=== PATIENT | female | born 1985 ===

== ENCOUNTER → 2024-10-07 07:08 | Outpatient (REF) | payer BC, SELFPAY | LOC: MRI 07:08 | PROVIDERS: ATTENDING PHYSICIAN Physician Assistant Medical; FAMILY PHYSICIAN Physician Assistant Medical | DX: M76.891 Other specified enthesopathies of right lower limb, excluding foot (principal); M76.892 Other specified enthesopathies of left lower limb, excluding foot | CPT/HCPCS: 72195 ==

== ENCOUNTER → 2025-02-16 19:22 | Outpatient (REF) | payer BC, SELFPAY | LOC: MRI 3T 19:22 | PROVIDERS: ATTENDING PHYSICIAN Orthopaedic Surgery; FAMILY PHYSICIAN Physician Assistant Medical | DX: M77.8 Other enthesopathies, not elsewhere classified (principal); M25.532 Pain in left wrist | CPT/HCPCS: 73221 ==

== ENCOUNTER 2025-04-24 20:46 | Emergency (ER) | payer BC, SELFPAY ==
[2025-04-24 20:49] VITALS: BP 140/89
[2025-04-24 21:19] LABS: HCG, Serum Qualitative Screen Negative
[2025-04-24 21:25] LABS: Hematocrit 38.6 % (37.0-47.0); Hemoglobin 13.2 g/dL (12.0-16.0); Mean Corp Hgb Conc. 34.2 g/dL (33.0-37.0); Mean Corpuscular Hgb 30.9 pg (27.0-31.0); Mean Corpuscular Volume 90.4 fL (81.0-99.0); Mean Platelet Volume 10.1 fL (7.4-10.4); Platelet Count 389 10^3/uL (130-400); Red Blood Cell Count 4.27 10^6/uL (4.20-5.40); Red Cell Dist. Width 11.9 % (11.5-14.5)
[2025-04-24 21:27] LABS: ALT (SGPT) 21 U/L (0-35); AST (SGOT) 17 U/L (14-36); Albumin 4.9 g/dl (3.5-5.0); Alkaline Phosphatase 36 U/L (38-126); Blood Urea Nitrogen 20 mg/dl (7-17); Calcium 9.7 mg/dl (8.4-10.2); Carbon Dioxide 30 mmol/L (22-30); Chloride 104 mmol/L (98-107); Glucose 100 mg/dl (70-99); Potassium 4.4 mmol/L (3.5-5.1); Sodium 140 mmol/L (135-145); Total Bilirubin 0.4 mg/dl (0.2-1.3); Total Protein 7.6 g/dl (6.3-8.2); eGFR > 60.00
[2025-04-24 21:41] LABS: Absolute Neutrophils -Man Diff 3.7 10^3/uL (1.4-6.5); Atypical Lymphocytes 2 %; Band Neutrophils 2 % (0-3); Eosinophils 3 % (0-6); Lymphocytes 37 % (20-51); Monocytes 4 % (2-9); Segmented Neutrophils 52 % (42-75)
[2025-04-24 21:42] LABS: Platelets Checked Yes
[2025-04-24 21:43] LABS: Normal RBC Morphology Yes; Total Cells Counted 100; Troponin I < 0.012 ng/ml
[2025-04-24 21:54] VITALS: BP 131/89; BMI 25.9
--- NOTE | 2025-04-24 21:59 | ED.GENMED ---
History of Present Illness
General
Chief Complaint: Heart Rate Problem
Source: patient
Exam Limitations: none
Time Seen by Provider: 04/24/25 21:56
History of Present Illness
History of Present Illness:
39yoF with a history of hypothyroidism presenting for evaluation after an episode of tachycardia. Patient is in a PhD program for chemistry. She was working on a paper that is due in 2 days. She suddenly started to experience pain in her left
shoulder region about 2 hours ago. This was followed by tingling throughout her face, hands, and feet. Her heart rate then spiked to the 160s. She denies any associated shortness of breath or syncope. Symptoms have now resolved and she is
feeling back to normal. Of note, patient is currently on steroids and an antibiotic for a sinus infection.
Phy Exam
General Physical Exam
General Presentation: well appearing and no apparent distress
General Skin: warm and dry
General Habitus: normal
General Mental: alert
ENT Exam
ENT Exam: normocephalic
Cardiovascular Exam
Cardiovascular Exam: regular rate/rhythm, no edema, no murmur and normal peripheral pulses (2+ radial and DP pulses bilaterally)
Pulmonary Exam
Pulmonary Exam: lungs clear, no respiratory distress, no rales, no crackles, no rhonchi and no wheezing
Neurological Exam
Neurological Exam: alert
[place] Coma Scale
Eye Opening: Spontaneous
Verbal Response: Oriented
Motor Response: Obeys Commands
GCS Total Score: 15
Skin Exam
Skin Exam: normal color and warm/dry
Psychiatric Exam
Psychiatric Exam: normal mood/affect
Course
Orders/Labs/Results
Orders:
Orders
04/24/25 20:46
Electrocardiogram (*1) Urgent
Reason for Study: Palpitations
EKG- Treatment ONCE
04/24/25 20:54
Test Result ONCE
04/24/25 21:01
Complete Blood Count/With Diff Urgent
Comprehensive Metabolic Panel Urgent
HCG, Serum Qualitative Screen Urgent
Manual Differential Urgent
TSH Urgent
Troponin I Urgent
Abnormal Lab Results
04/24/25
21:01
BUN 20 H mg/dl
(7-17)
Glucose 100 H mg/dl
(70-99)
Alkaline Phosphatase 36 L U/L
(38-126)
04/24/25 21:01
04/24/25 21:01
Vital Signs
Initial and Last Documented VS:
Initial Vital Signs
Temp Pulse Resp BP Pulse Ox
98.4 F 88 16 140/89 100
04/24/25 20:49 04/24/25 20:49 04/24/25 20:49 04/24/25 20:49 04/24/25 20:49
Last Documented Vital Signs
Temp Pulse Resp BP Pulse Ox
97.8 F 80 18 117/75 100
04/24/25 21:54 04/24/25 22:25 04/24/25 21:54 04/24/25 22:25 04/24/25 22:25
MDM/Problems Addressed
Differential Diagnosis Includes:
39yoF here after an episode of L shoulder pain 2 hours [employer]. Followed by paresthesias and heart racing. Now resolved. Admits to being under a lot of stress and is currently working on her PhD in chemistry. Also on steroids and abx for sinus infx.
VSS. She is well appearing in no distress. Exam reassuring. Differential diagnosis includes but is not limited to: arrhythmia, thyroid dysfunction, electrolyte abnormality, panic attack
Labs unremarkable including normal electrolytes and TSH. EKG shows NSR without ischemic changes or ectopic. Troponin WNL. No indication for hospitalization. Advised f/u with PCP and ED return precautions reviewed. Patient in agreement with plan and
is eager to go home. She was discharged in stable condition.
*EKG
Interpreted by ED Provider?: Yes
EKG Intrepretation Date: 04/24/25
Heart Rate: 86
Rate: normal
Rhythm: sinus
[place]: normal axis
Interval: normal interval
QRS Pattern: normal QRS
Ischemia: no ischemia
*Critical Care Note
Total Time (30-74mins, 75-104mins- exclusive of procedures): Not Applicable
ED Attending Note
-
Portions of this chart may have been created with voice recognition software.� Occasional wrong word or��sound alike� substitutions may have occurred due to the inherent limitations of voice recognition software.
Discharge Plan
Departure
Patient Disposition: Home (Routine Discharge)
Date of Disposition: 04/24/25
Time of Disposition: 22:21
Patient with high blood pressure during this ER visit?: No
Discharge Problem:
Palpitations
Instructions: Palpitations (DC)
Referrals:
[facility] [Provider Group]
UNKNOWN - PT DOES,NOT KNOW [Family Provider]
Activity Restrictions/Additional Instructions:
Please follow-up with your family doctor. Return to the ER with any new or worsening symptoms.
Interventions
Interventions:
*Risk Screen - Suicide Last Done: 04/24/25 20:49
*General Assessment Last Done: 04/24/25 22:40
*Neglect/Abuse Screening Last Done: 04/24/25 20:49
*ED- Fall Risk Assessment Last Done: 04/24/25 22:40
*ED COVID-19 Vaccine History Last Done: 04/24/25 22:40
*Nursing Disposition Last Done: 04/24/25 22:40
ED- Cardiac Assessment Last Done: 04/24/25 21:54
ED- Pulmonary Assessment Last Done: 04/24/25 21:54
Discharge Date and Time
Discharge Date/Time: 04/24/25 22:41
Print Language: [place]
[2025-04-24 22:01] LABS: TSH 2.16 uIU/ml (0.47-4.68)
[2025-04-24 22:25] VITALS: BP 117/75
== END 2025-04-24 22:41 | disposition home or self-care (01) ==
LOC: EMR 20:46
PROVIDERS: Emergency Medicine; EMERGENCY PHYSICIAN Emergency Medicine
DX: R00.2 Palpitations (principal); E03.9 Hypothyroidism, unspecified
CPT/HCPCS: 99283; 80053; 84443; 84484; 84703; 85025; 93005

== ENCOUNTER 2025-08-30 17:10 | Emergency (ER) | payer BC, SELFPAY ==
[2025-08-30 17:22] VITALS: BP 136/89
[2025-08-30 18:01] LABS: Hematocrit 41.2 % (37.0-47.0); Hemoglobin 13.7 g/dL (12.0-16.0); Mean Corp Hgb Conc. 33.3 g/dL (33.0-37.0); Mean Corpuscular Volume 91.8 fL (81.0-99.0); Nucleated Red Blood Cells % 0 %; Platelet Count 237 10^3/uL (130-400); Red Cell Dist. Width 12.0 % (11.5-14.5); Urine Character Clear (Clear)
[2025-08-30 18:07] LABS: Urine Squamous Cell >30 /LPF (Few)
[2025-08-30 18:08] LABS: Urine Red Blood Cell 0-2 /HPF (0-2); Urine White Cell 26-30 /HPF (0-5)
[2025-08-30 18:21] LABS: ALT (SGPT) 14 U/L (0-35); AST (SGOT) 16 U/L (14-36); Albumin 4.8 g/dl (3.5-5.0); Alkaline Phosphatase 33 U/L (38-126); Blood Urea Nitrogen 13 mg/dl (7-17); Calcium 9.2 mg/dl (8.4-10.2); Carbon Dioxide 27 mmol/L (22-30); Chloride 103 mmol/L (98-107); Glucose 89 mg/dl (70-99); Potassium 3.6 mmol/L (3.5-5.1); Sodium 137 mmol/L (135-145); Total Protein 7.2 g/dl (6.3-8.2); eGFR > 60.00
[2025-08-30 19:29] VITALS: BMI 26.4
[2025-08-30] MEDS: LEVAQUIN 750 MG PO (19:42)
[2025-08-30] MEDS: ZOFRAN ODT (ORALLY DISINTEGRATING) 4 MG PO (19:43)
[2025-08-30 19:55] LABS: HCG, Urine Qualitative Screen Negative
--- NOTE | 2025-08-30 22:43 | ED.GENMED ---
History of Present Illness
General
Chief Complaint: Urinary Symptoms
Time Seen by Provider: 08/30/25 19:22
Nursing documentation reviewed up to this point in time: agreed with
History of Present Illness
History of Present Illness:
39-year-old female presents to the ER as referred from urgent care for further treatment of complicated urinary tract infection. Patient states that she had been experiencing dysuria and urinary frequency, similar to prior UTIs. She was seen in
urgent care 5 days ago and had urinalysis with culture performed. She was initiated on nitrofurantoin initially. Once culture results available, she was changed to Augmentin given susceptibilities of the Citrobacter. She states that she has been
feeling feverish. She reports diffuse lower back discomfort. She also now has nasal congestion and sore throat. She does travel frequently for work. She reports feeling fatigued with mild decreased appetite and nausea. No vomiting. No
diarrhea. She does report persistent dysuria. No rash, no peripheral edema.
Review of Systems
Review of Systems
Allergies reviewed?: Yes
Phy Exam
Physical Exam
Physical Exam:
Patient is awake, alert, appears in no acute distress, head is NCAT, PERRL, EOMI mucous membranes moist, posterior pharynx is clear, no erythema, no uvular deviation, conjunctiva pink, heart regular rate and rhythm without murmurs or ectopy, lungs
are clear to auscultation without wheezes rales or rhonchi, no JVD, abdomen is soft and nontender on palpation, no CVA tenderness, extremities without edema, GCS is 15
Course
Orders/Labs/Results
Orders:
Orders
08/30/25 17:25
Test Result ONCE
08/30/25 17:35
Complete Blood Count/With Diff Urgent
Comprehensive Metabolic Panel Urgent
Urinalysis Reflex To Culture Urgent
Date Specimen was Collected: 08/30/25
Time Specimen was Collected: 17:26
Urine Microscopic Reflex Cult Urgent
Urine,Hcg qualitative screen [HCG, Urine Qualitative Screen] Urgent
Date Specimen was Collected: 08/30/25
Time Specimen was Collected: 17:26
Urine Culture Urgent
JEANCARLOS Source: U
Specimen Description:
Date Specimen was Collected: 08/30/25
Time Specimen was Collected: 17:26
08/30/25 19:34
LevoFLOXacin [Levaquin] 750 mg PO NOW STA
Ondansetron Orally Disint [Zofran Odt (Orally Disintegrating)] 4 mg PO NOW STA
Abnormal Lab Results
08/30/25
17:35
MPV 10.6 H fL
(7.4-10.4)
Alkaline Phosphatase 33 L U/L
(38-126)
Leukocyte Esterase Rfl 3+ A
(Negative)
Urine WBC (Reflex) 26-30 A /HPF
(0-5)
Urine Bacteria (Reflex) Moderate A
(Negative)
08/30/25 17:35
08/30/25 17:35
Very reassuring normal CBC, electrolytes normal, urinalysis still appears to be infected versus contaminated, kidney function preserved
Vital Signs
Initial and Last Documented VS:
Initial Vital Signs
Temp Pulse Resp BP Pulse Ox
98.5 F 88 18 136/89 98
08/30/25 17:22 08/30/25 17:22 08/30/25 17:22 08/30/25 17:22 08/30/25 17:22
Last Documented Vital Signs
Temp Pulse Resp BP Pulse Ox
98.5 F 68 18 136/89 99
08/30/25 17:22 08/30/25 19:59 08/30/25 17:22 08/30/25 17:22 08/30/25 19:59
MDM/Problems Addressed
Differential Diagnosis Includes:
Differential diagnosis to consider but not limited to pyelonephritis, viral syndrome, dehydration along with other etiologies considered
*Pulse Oximetry
SaO2: 99
Oxygen Mode of Delivery: Room air
Patient hypoxic: no
*Critical Care Note
Total Time (30-74mins, 75-104mins- exclusive of procedures): Not Applicable
Update Note
Update Note:
Patient with overall benign appearance. I was able to review susceptibilities on the patient's phone. Augmentin is susceptible for, levofloxacin is susceptible less than 0.12. Given patient is still having symptoms,and urinalysis is concerning
for ongoing infection, I discussed with patient changed to levofloxacin for further care. I also discussed with her most likely etiology of nasal congestion and overall fatigue related to viral URI. She does not have lateralizing symptoms
concerning for pyelonephritis or renal colic. I discussed with patient strict return precautions, as needed use of Zofran for nausea. She was able to tolerate p.o. in the department. She agreed with plan and had no questions prior to leaving
department
ED Attending Note
-
Portions of this chart may have been created with voice recognition software.� Occasional wrong word or��sound alike� substitutions may have occurred due to the inherent limitations of voice recognition software.
Discharge Plan
Departure
Patient Disposition: Home (Routine Discharge)
Date of Disposition: 08/30/25
Time of Disposition: 19:35
Patient with high blood pressure during this ER visit?: No
Discharge Problem:
UTI (urinary tract infection), Upper respiratory infection
Instructions: Urinary Tract Infection, Adult (DC), Cough, runny nose, and colds
Prescriptions:
New
ondansetron 4 mg tablet,disintegrating
4 mg PO TIDPRN PRN (Reason: nausea/vomiting) Qty: 10 0RF
levofloxacin 750 mg tablet
750 mg PO DAILY Qty: 4 0RF
Referrals:
UNKNOWN - PT DOES,NOT KNOW [Family Provider]
Stand Alone Forms: Return to Work
Activity Restrictions/Additional Instructions:
Encourage fluids. Please complete course of Levaquin as prescribed. Return to the ER for any concerns
Interventions
Interventions:
*Risk Screen - Suicide Last Done: 08/30/25 17:22
*General Assessment Last Done: 08/30/25 17:22
*Neglect/Abuse Screening Last Done: 08/30/25 17:22
*ED- Fall Risk Assessment Last Done: 08/30/25 17:22
*ED COVID-19 Vaccine History Last Done: 08/30/25 17:22
*ED Influenza Vaccine History Last Done: 08/30/25 17:22
*Nursing Disposition Last Done: 08/30/25 19:59
ED-Female Genitourinary Assessment Last Done: 08/30/25 19:29
Discharge Date and Time
Discharge Date/Time: 08/30/25 20:04
Print Language: [place]
== END 2025-08-30 20:04 | disposition home or self-care (01) ==
LOC: EMR 17:10
PROVIDERS: EMERGENCY PHYSICIAN Emergency Medicine
DX: N39.0 Urinary tract infection, site not specified (principal); J06.9 Acute upper respiratory infection, unspecified
CPT/HCPCS: 99283; 80053; 81003; 81015; 81025; 85025; 87086

== ENCOUNTER 2025-09-04 10:55 | Emergency (ER) | payer BC, SELFPAY ==
[2025-09-04 10:58] VITALS: BP 138/95
[2025-09-04 11:22] LABS: Urine Character Clear (Clear)
[2025-09-04 11:31] LABS: Urine Red Blood Cell 0-2 /HPF (0-2); Urine Squamous Cell >30 /LPF (Few)
--- NOTE | 2025-09-04 12:40 | ED.GENMED ---
History of Present Illness
General
Chief Complaint: Urinary Symptoms
Source: patient
Exam Limitations: none
Time Seen by Provider: 09/04/25 12:12
Nursing documentation reviewed up to this point in time: agreed with
History of Present Illness
History of Present Illness:
39-year-old female with history of hypothyroidism presents for flank pain. She was seen here on 08/30 and diagnosed with a UTI and finished 5 days of Levaquin her last dose was yesterday. She states 6 days ago she developed left flank pain which
subsided after 3 days and then started with right flank pain which was not as severe and has also improved with just some residual occasional intermittent stabbing pains. She developed suprapubic pain to the point where she could not even lay on
her stomach which is how she sleeps, she went to urgent care 2 days ago with 'bladder pain' and they recommended to go to ER if symptoms worsen. She states all symptoms are much improved, she is mainly concerned that she is getting a kidney
infection. Denies fever, n/v/d, does feel constipated, last BM over 5 days ago. Takes Miralax as needed. She still has some pain with urination and Azo OTC urinary analgesic has helped. She has appointment with her MEDICAL TRANSLATOR doctor in 5 days.
Past History
Past History
ED Past Medical History: Hypothyroidism
Social History
Tobacco: Non-smoker
Alcohol: Occasional
Personal:
Living: with family
Employment: Employed
Review of Systems
Review of Systems
Allergies reviewed?: Yes
All Other Systems: ROS reviewed and negative except as documented in HPI and ROS
Phy Exam
Physical Exam
Physical Exam:
GENERAL: No acute distress. A&Ox3.
CONSTITUTIONAL: Afebrile.
EYES: clear, conjunctivae normal
ENMT: moist mucus membranes, Pharynx nl
RESPIRATORY: Regular respirations, nonlabored, lungs clear.
CARDIOVASCULAR: Regular rate and rhythm, no murmurs, no rubs.
GI: Soft, mild discomfort with deep palpation of left side of abdomen with a tubular mass palpated, consistent with stool, nondistended, normal BS
MUSCULOSKELETAL: Moves with ease. Well perfused.
SKIN: Warm, dry, pink
PSYCH: Normal mood and affect. Well kept, interactive and appropriate
NEUROLOGIC: Awake, alert and oriented. No focal neurological deficits
Course
Orders/Labs/Results
Orders:
Orders
09/04/25 11:06
Urinalysis Reflex To Culture Urgent
Date Specimen was Collected: 09/04/25
Time Specimen was Collected: 11:01
Urine Microscopic Reflex Cult Urgent
Urine Culture Urgent
JEANCARLOS Source: U
Specimen Description:
Date Specimen was Collected: 09/04/25
Time Specimen was Collected: 11:01
Abnormal Lab Results
09/04/25
11:06
Leukocyte Esterase Rfl 1+ A
(Negative)
Urine Bacteria (Reflex) Few A
(Negative)
Urine Albumin (Reflex) 1+ A
(Neg - Trace)
Vital Signs
Initial and Last Documented VS:
Initial Vital Signs
Temp Pulse Resp BP Pulse Ox
98.3 F 92 15 138/95 95
09/04/25 10:58 09/04/25 10:58 09/04/25 10:58 09/04/25 10:58 09/04/25 10:58
Last Documented Vital Signs
Temp Pulse Resp BP Pulse Ox
98.3 F 75 18 128/75 99
09/04/25 10:58 09/04/25 14:09 09/04/25 14:09 09/04/25 14:09 09/04/25 14:09
MDM/Problems Addressed
Differential Diagnosis Includes:
UTI, cystitis
MDM/Problems Addressed:
39-year-old female with history of hypothyroidism presents for flank pain. She was seen here on 08/30 and diagnosed with a UTI and finished 5 days of Levaquin her last dose was yesterday. She states 6 days ago she developed left flank pain which
subsided after 3 days and then started with right flank pain which was not as severe and has also improved with just some residual occasional intermittent stabbing pains. She developed suprapubic pain to the point where she could not even lay on
her stomach which is how she sleeps, she went to urgent care 2 days ago with 'bladder pain' and they recommended to go to ER if symptoms worsen. She states all symptoms are much improved, she is mainly concerned that she is getting a kidney
infection. Denies fever, n/v/d, does feel constipated, last BM over 5 days ago. Takes Miralax as needed. She still has some pain with urination and Azo OTC urinary analgesic has helped. She has appointment with her MEDICAL TRANSLATOR doctor in 5 days.
Afebrile, NAD
She has appt with MEDICAL TRANSLATOR in 5 days
Her blood work here 5 days ago is normal, no need to repeat, reassured her kidney function is normal.
Her flank pain has subsided
Here U/A today is clean
Nothing more to do at this point. Abdomen benign save for mild discomfort LLQ with palpation and tubular mass consistent with stool. She will do what she usually does for constipation, Miralax, fluids, etc. No indication for US, CT scan or further
testing. She agrees.
*Pulse Oximetry
SaO2: 95
Oxygen Mode of Delivery: Room air
Patient hypoxic: not evaluated
*Critical Care Note
Total Time (30-74mins, 75-104mins- exclusive of procedures): Not Applicable
ED Attending Note
-
Portions of this chart may have been created with voice recognition software.� Occasional wrong word or��sound alike� substitutions may have occurred due to the inherent limitations of voice recognition software.
Discharge Plan
Departure
Patient Disposition: Home (Routine Discharge)
Date of Disposition: 09/04/25
Time of Disposition: 13:12
Patient with high blood pressure during this ER visit?: No
Condition: Good
Discharge Problem:
Dysuria, Constipation
Instructions: Constipation in adults - ED (DC)
Prescriptions:
No Action
ondansetron 4 mg tablet,disintegrating
4 mg PO TIDPRN PRN (Reason: nausea/vomiting) Qty: 10 0RF
levofloxacin 750 mg tablet
750 mg PO DAILY Qty: 4 0RF
Referrals:
Jill Purcell, DO [Active, Urology] - As needed
UNKNOWN - PT DOES,NOT KNOW [Family Provider]
Activity Restrictions/Additional Instructions:
As we discussed, there is no sign of kidney infection/pyelonephritis. Continue the [id number] urinary analgesic since it is helping.
Drink plenty of fluid
Ibuprofen as needed for pain
Keep your appointment with your MEDICAL TRANSLATOR doctor next Sunday
I provided you with a referral to our urology/pelvic floor doctor to use if
Interventions
Interventions:
*Risk Screen - Suicide Last Done: 09/04/25 10:58
*General Assessment Last Done: 09/04/25 10:58
*Neglect/Abuse Screening Last Done: 09/04/25 10:58
*ED COVID-19 Vaccine History Last Done: 09/04/25 10:58
*ED Influenza Vaccine History Last Done: 09/04/25 10:58
*Nursing Disposition Last Done: 09/04/25 14:10
ED-Female Genitourinary Assessment Last Done: 09/04/25 14:09
Discharge Date and Time
Discharge Date/Time: 09/04/25 14:11
Print Language: [place]
[2025-09-04 14:09] VITALS: BP 128/75
== END 2025-09-04 14:11 | disposition home or self-care (01) ==
LOC: EMR 10:55
PROVIDERS: Student in an Organized Health Care Education/Training Program; EMERGENCY PHYSICIAN Emergency Medicine
DX: R30.0 Dysuria (principal); K59.00 Constipation, unspecified; E03.9 Hypothyroidism, unspecified
CPT/HCPCS: 99282; 81003; 81015; 87086